=== PATIENT | male | born 1990 | race Caucasian/White ===

== ENCOUNTER 2023-09-13 16:25 | Emergency (ER) | payer OTHER ==
[~2023-09-13] VITALS: Ht 182.9 cm; Wt 96.2 kg
--- OUTSIDE RECORDS SUMMARY | 2023-09-13 16:30 | XMS ---
PreManage Notification: ROMEL GARCIA Security Binding End Stitcher Events No recent Security Events currently on file CRITERIA MET - [facility] CARE PROVIDERS There are no care providers on record at this time. Karen has no Care Guidelines for this patient. Joesph VISIT COUNT (12 MO.) 1 [facility] TOTAL 1 NOTE: Visits indicate total known visits. ED/C VISIT TRACKING (12 MO.) 09/13/2023 16:27 [facility] TYPE: Emergency COMPLAINT: - [facility] INPATIENT VISIT TRACKING (12 MO.) No inpatient visits to display in this time frame [email or web address]
[2023-09-13] MEDS ORDERED: SERTRALINE HCL50 MG PO (18:03)
[2023-09-13] MEDS ORDERED: LEVETIRACETAM500 MG PO (18:03)
[2023-09-13] MEDS ORDERED: CYCLOBENZAPRINE10 MG PO (19:39)
[2023-09-13 20:05] VITALS: BP 140/82
== END 2023-09-13 20:05 | disposition home or self-care (01) ==
LOC: ED 16:25
DX: M54.42 Lumbago with sciatica, left side (principal); Z79.899 Other long term (current) drug therapy
CPT/HCPCS: 72131; 96374; 96375; 99283-25; A9270; J1100; J1885; J2060

== ENCOUNTER 2023-10-27 09:16 | Emergency (ER) | payer OTHER ==
[~2023-10-27] VITALS: Ht 182.9 cm; Wt 83.9 kg
[~2023-10-27 09:16] MED LIST: CYCLOBENZAPRINE10 MG PO; LEVETIRACETAM500 MG PO; SERTRALINE HCL50 MG PO
[2023-10-27] MEDS ORDERED: VITAMIN D250 MCG PO (09:33)
[2023-10-27] MEDS ORDERED: DESCOVY 200-251 EACH PO (09:33)
[2023-10-27] MEDS ORDERED: MAGNESIUM400 MG PO (09:33)
[2023-10-27] MEDS ORDERED: KEPPRA1000 MG PO (10:39)
[2023-10-27 10:45] VITALS: BP 122/76
== END 2023-10-27 10:45 | disposition home or self-care (01) ==
LOC: ED 09:16
DX: G40.909 Epilepsy, unspecified, not intractable, without status epilepticus (principal); Z79.899 Other long term (current) drug therapy
CPT/HCPCS: J1953; J2405